=== PATIENT | female | born 1960 | race Caucasian/White ===

== ENCOUNTER 2017-02-11 01:47 | Emergency (ER) | payer OTHER, MEDICAID ==
[2017-02-11 03:45] LABS: AUTOMATED NEUTROPHIL # 3.6 TH/MM3 (1.8-7.7); BASOPHIL # 0.1 TH/MM3 (0-0.2); BASOPHIL % 1.2 % (0.0-2.0); EOSINOPHIL # 0.1 TH/MM3 (0-0.4); EOSINOPHIL % 1.7 % (0.0-4.0); HEMATOCRIT 37.1 % (35.0-46.0); LYMPH % 18.9 % (9.0-44.0); MEAN CELL VOLUME 97.6 FL (80.0-100.0); MEAN CORPUSCULAR HEMOGLOBIN 32.4 PG (27.0-34.0); MEAN CORPUSCULAR HGB CONC 33.2 % (32.0-36.0); NEUT % 68.2 % (16.0-70.0); PLATELET COUNT 60 TH/MM3 (150-450); RED CELL DISTRIBUTION WIDTH 13.7 % (11.6-17.2); WHITE BLOOD COUNT 5.2 TH/MM3 (4.0-11.0)
[2017-02-11 03:46] LABS: HEMO FLAGS AUTO DIFF
[2017-02-11 04:06] LABS: ALCOHOL LESS THAN 3 MG/DL (0-5)
[2017-02-11 04:14] LABS: ALKALINE PHOSPHATASE 84 U/L (45-117); ALT (GPT) 85 U/L (10-53); ANION GAP 7 MEQ/L (5-15); AST (GOT) 100 U/L (15-37); BICARBONATE 25.1 MEQ/L (21.0-32.0); BLOOD UREA NITROGEN 16 MG/DL (7-18); CHLORIDE 109 MEQ/L (98-107); GLOMERULAR FILTRATION RATE 52 ML/MIN (>89); POTASSIUM 4.2 MEQ/L (3.5-5.1); SODIUM (NA) 141 MEQ/L (136-145)
[2017-02-11 04:15] LABS: TOTAL BILIRUBIN ADULT 0.7 MG/DL (0.2-1.0)
[2017-02-11 04:27] VITALS: BP 137/82; PULSE 90; RESP 18; O2SAT 99
[2017-02-11 05:12] LABS: PLATELET ESTIMATE SMEAR LOW (NORMAL); PLATELET MORPHOLOGY ENLARGED (NORMAL); SCAN/DIFF AUTO DIFF CONFIRMED
--- NOTE | 2017-02-11 05:35 | PD ---
HPI Chief Complaint: Psychiatric Symptoms Time Seen by Provider: 03:52 Travel History International Travel<30 days: No Contact w/Intl Traveler<30days: No Traveled to known affect area: No History of Present Illness HPI Patient is a 56-year-old female brought into the emergency department under Mckeon act for hallucinations. Patient was in her rental home cleaning when she felt someone was in the house, she called police and hit the bathroom. When the police got there patient was still hiding and there was no one in the home. Patient admittedly uses crack cocaine 1 month, she states that she "treats herself", she would also drink a beer with it. She does admit to drinking a [employer] this evening. She denies any suicidal or homicidal ideations, she denies any hallucinations. She has no physical complaints at this time. [facility] Past Medical History Arthritis: No Asthma: No Autoimmune Disease: No Blood Disorders: No Anxiety: No Depression: Yes Heart Rhythm Problems: No Cancer: No Cardiovascular Problems: No High Cholesterol: No Chemotherapy: No Chest Pain: No Congestive Heart Failure: No COPD: No Cerebrovascular Accident: No Diabetes: No Diminished Hearing: No Endocrine: No GERD: No Glaucoma: No Genitourinary: No Headaches: No Hepatitis: Yes Hiatal Hernia: No Hypertension: No Kidney Stones: No Musculoskeletal: No Neurologic: Yes (NEUROPATHY) Psychiatric: Yes Respiratory: No Myocardial Infarction: No Radiation Therapy: No Renal Failure: No Seizures: No Sickle Cell Disease: No Sleep Apnea: No Thyroid Disease: No Ulcer: No ?: Not Past Surgical History Abdominal Surgery: No AICD: No Cardiac Surgery: No Ear Surgery: No Endocrine Surgery: No Eye Surgery: No Genitourinary Surgery: No Gynecologic Surgery: No Oral Surgery: No Pacemaker: No Thoracic Surgery: No Social History Alcohol Use: No Tobacco Use: Yes Substance Use: No Allergies-Medications (Allergen,Severity, Reaction): Coded Allergies: No Known Allergies (Verified Allergy, Severe, 01/17/05) Reported Meds & Prescriptions Reported Meds & Active Scripts Active Active Prescriptions or Reported Medications Unobtainable Review of Systems Except as stated in HPI: all other systems reviewed are Neg Psychiatric: Positive: Substance Abuse, Other (hallucinations) Physical Exam Narrative GENERAL: Thin, well-developed, alert female. Resting comfortably in no acute distress. SKIN: Warm and dry. HEAD: Atraumatic. Normocephalic. EYES: Pupils equal and round. No scleral icterus. No injection or drainage. ENT: No nasal bleeding or discharge. Mucous membranes pink and moist. NECK: Trachea midline. No JVD. CARDIOVASCULAR: Regular rate and rhythm. RESPIRATORY: No accessory muscle use. Clear to auscultation. Breath sounds equal bilaterally. GASTROINTESTINAL: Abdomen soft, non-tender, nondistended. Hepatic and splenic margins not palpable. MUSCULOSKELETAL: Extremities without clubbing, cyanosis, or edema. No obvious deformities. NEUROLOGICAL: Awake and alert. No obvious cranial nerve deficits. Motor grossly within normal limits. Five out of 5 muscle strength in the arms and legs. Normal speech. PSYCHIATRIC: Appropriate mood and affect; insight and judgment normal. Data Data Last Documented VS Vital Signs Date Time Temp Pulse Resp B/P (MAP) Pulse Ox O2 Delivery O2 Flow Rate FiO2 02/11/17 04:27 90 18 137/82 (100) 99 Orders Orders Complete Blood Count With Diff (02/11/17 03:00) Alcohol (Ethanol) (02/11/17 03:00) Drug Screen, Random Urine (02/11/17 03:00) Comprehensive Metabolic Panel (02/11/17 03:00) Labs Laboratory Tests Test 02/11/17 03:00 White Blood Count 5.2 TH/MM3 Red Blood Count 3.80 MIL/MM3 Hemoglobin 12.3 GM/DL Hematocrit 37.1 % Mean Corpuscular Volume 97.6 FL Mean Corpuscular Hemoglobin 32.4 PG Mean Corpuscular Hemoglobin Concent 33.2 % Red Cell Distribution Width 13.7 % Platelet Count 60 TH/MM3 Mean Platelet Volume 11.1 FL Neutrophils (%) (Auto) 68.2 % Lymphocytes (%) (Auto) 18.9 % Monocytes (%) (Auto) 10.0 % Eosinophils (%) (Auto) 1.7 % Basophils (%) (Auto) 1.2 % Neutrophils # (Auto) 3.6 TH/MM3 Lymphocytes # (Auto) 1.0 TH/MM3 Monocytes # (Auto) 0.5 TH/MM3 Eosinophils # (Auto) 0.1 TH/MM3 Basophils # (Auto) 0.1 TH/MM3 CBC Comment AUTO DIFF Differential Comment AUTO DIFF CONFIRMED Platelet Estimate LOW Platelet Morphology Comment ENLARGED Blood Urea Nitrogen 16 MG/DL Creatinine 1.09 MG/DL Random Glucose 123 MG/DL Total Protein 7.8 GM/DL Albumin 3.7 GM/DL Calcium Level 8.7 MG/DL Alkaline Phosphatase 84 U/L Aspartate Amino Transf (AST/SGOT) 100 U/L Alanine Aminotransferase (ALT/SGPT) 85 U/L Total Bilirubin 0.7 MG/DL Sodium Level 141 MEQ/L Potassium Level 4.2 MEQ/L Chloride Level 109 MEQ/L Carbon Dioxide Level 25.1 MEQ/L Anion Gap 7 MEQ/L Estimat Glomerular Filtration Rate 52 ML/MIN Urine Opiates Screen NEG Urine Barbiturates Screen NEG Urine Amphetamines Screen NEG Urine Benzodiazepines Screen NEG Urine Cocaine Screen POS Urine Cannabinoids Screen NEG Ethyl Alcohol Level LESS THAN 3 MG/DL MDM Medical Decision Making Medical Screen Exam Complete: Yes Emergency Medical Condition: Yes Interpretation(s) Laboratory Tests Test 02/11/17 03:00 White Blood Count 5.2 TH/MM3 Red Blood Count 3.80 MIL/MM3 Hemoglobin 12.3 GM/DL Hematocrit 37.1 % Mean Corpuscular Volume 97.6 FL Mean Corpuscular Hemoglobin 32.4 PG Mean Corpuscular Hemoglobin Concent 33.2 % Red Cell Distribution Width 13.7 % Platelet Count 60 TH/MM3 Mean Platelet Volume 11.1 FL Neutrophils (%) (Auto) 68.2 % Lymphocytes (%) (Auto) 18.9 % Monocytes (%) (Auto) 10.0 % Eosinophils (%) (Auto) 1.7 % Basophils (%) (Auto) 1.2 % Neutrophils # (Auto) 3.6 TH/MM3 Lymphocytes # (Auto) 1.0 TH/MM3 Monocytes # (Auto) 0.5 TH/MM3 Eosinophils # (Auto) 0.1 TH/MM3 Basophils # (Auto) 0.1 TH/MM3 CBC Comment AUTO DIFF Differential Comment AUTO DIFF CONFIRMED Platelet Estimate LOW Platelet Morphology Comment ENLARGED Blood Urea Nitrogen 16 MG/DL Creatinine 1.09 MG/DL Random Glucose 123 MG/DL Total Protein 7.8 GM/DL Albumin 3.7 GM/DL Calcium Level 8.7 MG/DL Alkaline Phosphatase 84 U/L Aspartate Amino Transf (AST/SGOT) 100 U/L Alanine Aminotransferase (ALT/SGPT) 85 U/L Total Bilirubin 0.7 MG/DL Sodium Level 141 MEQ/L Potassium Level 4.2 MEQ/L Chloride Level 109 MEQ/L Carbon Dioxide Level 25.1 MEQ/L Anion Gap 7 MEQ/L Estimat Glomerular Filtration Rate 52 ML/MIN Urine Opiates Screen NEG Urine Barbiturates Screen NEG Urine Amphetamines Screen NEG Urine Benzodiazepines Screen NEG Urine Cocaine Screen POS Urine Cannabinoids Screen NEG Ethyl Alcohol Level LESS THAN 3 MG/DL Vital Signs Date Time Temp Pulse Resp B/P (MAP) Pulse Ox O2 Delivery O2 Flow Rate FiO2 02/11/17 04:27 90 18 137/82 (100) 99 Differential Diagnosis Mood disorder versus substance abuse versus suicidal ideation visual hallucinations versus other Narrative Course Patient presented under Mckeon act for evaluation after hallucinating that people were in her rental home. Patient denies any suicidal or homicidal ideations. Mental health screening discussed with the patient. Psychiatric screen ordered. Labs reviewed, no acute abnormalities identified. Urine drug screen is positive for cocaine. Patient is medically clear for psychiatric evaluation at this time. Diagnosis Primary Impression: Medical clearance for psychiatric admission Additional Impression: Cocaine abuse Scripts Unable to Obtain Active Prescriptions or Reported Meds Condition: Stable Dianna Roca [facility] Feb 11, 2017 05:35
[2017-02-11 07:25] VITALS: BP 115/70; PULSE 79; RESP 17; TEMP 98; O2SAT 99
[2017-02-11 16:41] VITALS: BP 124/74; PULSE 62; RESP 17; TEMP 98.6; O2SAT 100
--- NOTE | 2017-02-11 18:54 | PD ---
History of Present Illness Chief Complaint: Psychiatric Symptoms Time Seen by Provider: 18:45 Travel History International Travel<30 Days: No Contact w/Intl Traveler<30days: No Known affected area: No Legal Status Legal Status: Mckeon Act History of Present Illness: 56-year-old female who admittedly became paranoid after using crack cocaine. Patient was Mckeon acted by law enforcement. At this time she is no longer intoxicated with cocaine and she denies suicidal or homicidal ideation, plan or intent. She denies any psychotic symptoms and she denies any paranoid ideation. Her cognition is intact. She is verbally zohaib for safety and she is competent to do so. She states she uses cocaine approximately once per month, primarily in crack form. She lives with her mother and makes her father vegetable soup. She feels she is certainly accepted back at her mother's residence as she has been living there for years. She would like to go home and she does not meet criteria for Mckeon act or involuntary psychiatric hospitalization at this time. PFSH Past Medical History Arthritis: No Asthma: No Autoimmune Disease: No Blood Disorders: No Anxiety: No Depression: Yes Heart Rhythm Problems: No Cancer: No Cardiovascular Problems: No High Cholesterol: No Chemotherapy: No Chest Pain: No Congestive Heart Failure: No COPD: No Cerebrovascular Accident: No Diabetes: No Diminished Hearing: No Endocrine: No GERD: No Glaucoma: No Genitourinary: No Headaches: No Hepatitis: Yes Hiatal Hernia: No Hypertension: No Kidney Stones: No Musculoskeletal: No Neurologic: Yes (NEUROPATHY) Psychiatric: Yes Respiratory: No Myocardial Infarction: No Radiation Therapy: No Renal Failure: No Seizures: No Sickle Cell Disease: No Sleep Apnea: No Thyroid Disease: No Ulcer: No ?: Not Past Surgical History Abdominal Surgery: No AICD: No Cardiac Surgery: No Ear Surgery: No Endocrine Surgery: No Eye Surgery: No Genitourinary Surgery: No Gynecologic Surgery: No Oral Surgery: No Pacemaker: No Thoracic Surgery: No Psychiatric History Psychiatric History Hx Psychiatric Treatment: Denied History of Inpatient Treatment: No Guns or firearms in home: No Social History Hx Alcohol Use: No Hx Tobacco Use: Yes Hx Substance Use: Yes Substance Use Type: Crack Hx of Substance Use Treatment: No Allergies-Medications (Allergen,Severity, Reaction): Coded Allergies: No Known Allergies (Verified Allergy, Severe, 01/17/05) Reported Meds & Prescriptions Reported Meds & Active Scripts Active Active Prescriptions or Reported Medications Unobtainable Review of Systems Except as stated in HPI: all other systems reviewed are Neg Mental Status Examination Appearance: Appropriate Consciousness: Alert Orientation: x4 Motor Activity: Normal gait Speech: Unremarkable Language: Adequate Fund of Knowledge: Adequate Attention and Concentration: Adequate Memory: Unremarkable Mood: Appropriate Affect: Appropriate Thought Process & Associations: Intact Thought Content: Appropriate Hallucination Type: None Delusion Type: None Suicidal Ideation: No Suicidal Plan: No Suicidal Intention: No Homicidal Ideation: No Homicidal Plan: No Homicidal Intention: No Insight: Adequate Judgment: Adequate MDM Medical Decision Making Medical Record Reviewed: Yes Assessment/Plan Patient interviewed at bedside, medical record reviewed and case discussed with nurse, Jena. Patient is calm, pleasant and cooperative. She is verbally zohaib for safety and she is competent to do so. She is no longer intoxicated with cocaine and no longer psychotic. This physician feels she does not meet criteria for Mckeon act or involuntary psychiatric hospitalization. Orders Orders Complete Blood Count With Diff (02/11/17 03:00) Alcohol (Ethanol) (02/11/17 03:00) Drug Screen, Random Urine (02/11/17 03:00) Comprehensive Metabolic Panel (02/11/17 03:00) Diet Regular Basic (02/11/17 Breakfast) Results Vital Signs Date Time Temp Pulse Resp B/P (MAP) Pulse Ox O2 Delivery O2 Flow Rate FiO2 02/11/17 16:41 98.6 62 17 124/74 (91) 100 Room Air 02/11/17 07:25 98.0 79 17 115/70 (85) 99 Room Air 02/11/17 04:27 90 18 137/82 (100) 99 Laboratory Tests Test 02/11/17 03:00 White Blood Count 5.2 Red Blood Count 3.80 Hemoglobin 12.3 Hematocrit 37.1 Mean Corpuscular Volume 97.6 Mean Corpuscular Hemoglobin 32.4 Mean Corpuscular Hemoglobin Concent 33.2 Red Cell Distribution Width 13.7 Platelet Count 60 Mean Platelet Volume 11.1 Neutrophils (%) (Auto) 68.2 Lymphocytes (%) (Auto) 18.9 Monocytes (%) (Auto) 10.0 Eosinophils (%) (Auto) 1.7 Basophils (%) (Auto) 1.2 Neutrophils # (Auto) 3.6 Lymphocytes # (Auto) 1.0 Monocytes # (Auto) 0.5 Eosinophils # (Auto) 0.1 Basophils # (Auto) 0.1 CBC Comment AUTO DIFF Differential Comment AUTO DIFF CONFIRMED Platelet Estimate LOW Platelet Morphology Comment ENLARGED Blood Urea Nitrogen 16 Creatinine 1.09 Random Glucose 123 Total Protein 7.8 Albumin 3.7 Calcium Level 8.7 Alkaline Phosphatase 84 Aspartate Amino Transf (AST/SGOT) 100 Alanine Aminotransferase (ALT/SGPT) 85 Total Bilirubin 0.7 Sodium Level 141 Potassium Level 4.2 Chloride Level 109 Carbon Dioxide Level 25.1 Anion Gap 7 Estimat Glomerular Filtration Rate 52 Urine Opiates Screen NEG Urine Barbiturates Screen NEG Urine Amphetamines Screen NEG Urine Benzodiazepines Screen NEG Urine Cocaine Screen POS Urine Cannabinoids Screen NEG Ethyl Alcohol Level LESS THAN 3 Diagnosis Primary Impression: Cocaine abuse Prescriptions Unable to Obtain Active Prescriptions or Reported Meds Condition: Stable Rishi Johnson MD Feb 11, 2017 18:54
--- NOTE | 2017-02-11 19:19 | PD ---
Physical Exam Date Seen by Provider: Feb 11, 2017 Time Seen by Provider: 19:17 Narrative For full history and physical examination please see previous notes. Data Data Last Documented VS Vital Signs Date Time Temp Pulse Resp B/P (MAP) Pulse Ox O2 Delivery O2 Flow Rate FiO2 02/11/17 16:41 98.6 62 17 124/74 (91) 100 Room Air Orders Orders Complete Blood Count With Diff (02/11/17 03:00) Alcohol (Ethanol) (02/11/17 03:00) Drug Screen, Random Urine (02/11/17 03:00) Comprehensive Metabolic Panel (02/11/17 03:00) Diet Regular Basic (02/11/17 Breakfast) Labs Laboratory Tests Test 02/11/17 03:00 White Blood Count 5.2 TH/MM3 Red Blood Count 3.80 MIL/MM3 Hemoglobin 12.3 GM/DL Hematocrit 37.1 % Mean Corpuscular Volume 97.6 FL Mean Corpuscular Hemoglobin 32.4 PG Mean Corpuscular Hemoglobin Concent 33.2 % Red Cell Distribution Width 13.7 % Platelet Count 60 TH/MM3 Mean Platelet Volume 11.1 FL Neutrophils (%) (Auto) 68.2 % Lymphocytes (%) (Auto) 18.9 % Monocytes (%) (Auto) 10.0 % Eosinophils (%) (Auto) 1.7 % Basophils (%) (Auto) 1.2 % Neutrophils # (Auto) 3.6 TH/MM3 Lymphocytes # (Auto) 1.0 TH/MM3 Monocytes # (Auto) 0.5 TH/MM3 Eosinophils # (Auto) 0.1 TH/MM3 Basophils # (Auto) 0.1 TH/MM3 CBC Comment AUTO DIFF Differential Comment AUTO DIFF CONFIRMED Platelet Estimate LOW Platelet Morphology Comment ENLARGED Blood Urea Nitrogen 16 MG/DL Creatinine 1.09 MG/DL Random Glucose 123 MG/DL Total Protein 7.8 GM/DL Albumin 3.7 GM/DL Calcium Level 8.7 MG/DL Alkaline Phosphatase 84 U/L Aspartate Amino Transf (AST/SGOT) 100 U/L Alanine Aminotransferase (ALT/SGPT) 85 U/L Total Bilirubin 0.7 MG/DL Sodium Level 141 MEQ/L Potassium Level 4.2 MEQ/L Chloride Level 109 MEQ/L Carbon Dioxide Level 25.1 MEQ/L Anion Gap 7 MEQ/L Estimat Glomerular Filtration Rate 52 ML/MIN Urine Opiates Screen NEG Urine Barbiturates Screen NEG Urine Amphetamines Screen NEG Urine Benzodiazepines Screen NEG Urine Cocaine Screen POS Urine Cannabinoids Screen NEG Ethyl Alcohol Level LESS THAN 3 MG/DL MDM Medical Record Reviewed: Yes Supervised Visit with CARI: No Narrative Course Patient was brought into the emergency Department under Mckeon act due to hallucinations. She was seen and evaluated in the emergency department, medically cleared. She was seen and evaluated by the psychiatrist, the Mckeon act was lifted. Patient is to be discharged home. Diagnosis Primary Impression: Cocaine abuse Referrals: [facility] Patient Instructions: General Instructions Additional Instruction: Follow-up at [facility] Avoid illegal drug use Return to emergency department for any new or worsening symptoms Med/Other Pt SpecificInfo: No Change to Meds Scripts Unable to Obtain Active Prescriptions or Reported Meds Disposition: 01 DISCHARGE HOME Condition: Stable Dianna Roca Feb 11, 2017 19:19
== END 2017-02-11 19:59 | disposition home or self-care (01) ==
LOC: NEPD 01:47 → NEPJ 19:59
DX: F14.10 Cocaine abuse, uncomplicated (principal)
CPT/HCPCS: 80053; 80307; 85025; 99283